=== PATIENT | male | born 1945 | race Caucasian/White ===

== ENCOUNTER → 2016-10-17 | Day surgery (SDC) | payer MEDICARE ==
[~2016-10-17] MED LIST: ASPIRIN81 M1 PO; ASPIRIN81 MG PO; ATORVASTATIN CA20 MG PO; LISINOPRIL2.5 MG PO
--- NOTE | ~2016-10-17 | OR ---
Unit #: [id number] #: [id number] Patient: COSME PINEDA [id number] [address] [place], [place] [address] [id number] MR#: [id number] NAME: COSME PINEDA ROOM: Date of Procedure: 10/17/2016 Admission Date: 10/17/2016 Surgeon: Eligio Rose M.D. : 1945 Attending Physician: Eligio Rose M.D. OPERATIVE REPORT PRIMARY CARE PHYSICIAN Phil Massey M.D. PREOPERATIVE DIAGNOSES Colorectal cancer screening in a high-risk patient. The patient has family history of colon cancer in his father. PROCEDURE PERFORMED Colonoscopy up to cecum with good prep and visualization. POSTOPERATIVE DIAGNOSES Mild sigmoid and descending colon diverticulosis. Otherwise, normal examination up to cecum. The quality of the prep was excellent. No polyps were present. RECOMMENDATIONS Repeat colonoscopy in 5 years. SEDATION USED MAC. DESCRIPTION OF PROCEDURE Following detailed explanation of the potential risks and complications of a colonoscopy, namely perforation, bleeding, and complication related to sedation, the patient was brought to GI lab and laid in the left lateral decubitus position. A digital rectal examination was performed, which was normal. Lubricated tip of the Olympus video colonoscope was inserted through the anus and advanced under direct vision. The scope was advanced past rectosigmoid into descending colon. Multiple small to medium-sized diverticula were noticed in this area. The scope tip was then navigated all the way up to cecum with visualization of the ileocecal valve and the appendiceal orifice. Preparation was excellent with good visualization and photodocumentation was obtained. Last several inches of terminal ileum were also visualized after intubation of the ileocecal valve and appeared normal. Successive segments of the colonic mucosa were examined upon withdrawal and appeared unremarkable. There being no polyps, mass lesions, or AVMs. Other than the scant diverticula seen in the left side, no other abnormalities were noted. The patient did not have any hemorrhoids at anal verge. The scope was then withdrawn. The patient returned to the recovery area. He tolerated the procedure without any postprocedure complications. Unit #: [id number] #: [id number] Patient: COSME PINEDA Dictated by... Genevieve Rader/markell TD: 10/17/2016 14:21 JOB #: [id number] CC: Phil Massey M.D. OPERATIVE REPORT X Eligio Rose MD PROCEDURE OPERATIVE NOTE
== END | disposition home or self-care (01) ==
LOC: COPS 10:04
DX: Z12.11 Encounter for screening for malignant neoplasm of colon (principal); Z80.0 Family history of malignant neoplasm of digestive organs; K57.30 Diverticulosis of large intestine without perforation or abscess without bleeding; I10 Essential (primary) hypertension; E78.5 Hyperlipidemia, unspecified; Z79.82 Long term (current) use of aspirin